=== PATIENT | female | born 1985 | race Caucasian/White ===

== ENCOUNTER 2019-07-03 10:40 | Inpatient (IN) | payer OTHER ==
[2019-07-03] MEDS ORDERED: ONDANSETRON 4 MG/2 ML VIAL IVP PRN (11:35)
[2019-07-03] MEDS ORDERED: METOCLOPRAMIDE 10 MG/2 ML VIAL IVP PRN (11:35)
[2019-07-03] MEDS ORDERED: SODIUM CHLORIDE FLUSH 0.9% 10 ML SYRINGE IVP PRN (11:35)
[2019-07-03] MEDS ORDERED: OXYTOCIN/SODIUM CHLORIDE 500 ML IV ONE (11:53)
[2019-07-03] MEDS ORDERED: LACTATED RINGERS 1,000 ML IV SCH (12:00)
[2019-07-03] MEDS ORDERED: AMPICILLIN 2 GM in SODIUM CHLORIDE 0.9% MINIBAG 100 ML IV SCH (12:00)
[2019-07-03 12:02] LABS: BASOPHILS # (AUTO) 0.1 10^3/uL (0.0-0.1); BASOPHILS % (AUTO) 0.3 %; EOSINOPHILS % (AUTO) 0.1 %; HGB - HEMOGLOBIN 13.6 g/dL (12.0-16.0); LYMPHOCYTES # (AUTO) 1.8 10^3/uL (1.5-3.5); LYMPHOCYTES % (AUTO) 12.6 %; MEAN CORPUSCULAR HEMOGLOBIN 30.5 pg (27.0-31.0); MEAN CORPUSCULAR HGB CONC 33.3 g/dL (32.0-36.0); MEAN CORPUSCULAR VOLUME 91.5 fL (81.0-99.0); MEAN PLATELET VOLUME 10.2 fL (7.9-10.8); MONOCYTES # (AUTO) 0.7 10^3/uL (0.0-1.0); MONOCYTES % (AUTO) 5.1 %; NEUTROPHILS # (AUTO) 11.8 10^3/uL (1.5-6.6); NEUTROPHILS % (AUTO) 81.3 %; PLT - PLATELET COUNT 348 10^3/uL (130-450); RED BLOOD COUNT 4.46 10^6/uL (4.20-5.40); RED CELL DISTRIBUTION WIDTH 13.1 % (12.0-15.0); WHITE BLOOD COUNT 14.5 x10^3/uL (4.8-10.8)
[2019-07-03] MEDS: SODIUM CHLORIDE FLUSH 0.9% 10 ML SYRINGE IVP SCH (12:06)
[2019-07-03] MEDS ORDERED: OXYTOCIN/SODIUM CHLORIDE 500 ML IV PRN (12:53)
[2019-07-03] MEDS ORDERED: LIDOCAINE-MPF 1% 30 ML VIAL ID PRN (12:55)
[2019-07-03] MEDS ORDERED: SIMETHICONE CHEW 80 MG TABLET PO PRN (13:13)
[2019-07-03] MEDS ORDERED: ONDANSETRON ODT 4 MG TABLET TL PRN (13:13)
[2019-07-03] MEDS ORDERED: METHYLERGONOVINE 0.2 MG/ML AMP IM PRN (13:13)
[2019-07-03] MEDS ORDERED: CARBOPROST TROMETHAMINE 250 MCG/ML AMP IM PRN (13:13)
--- NOTE | 2019-07-03 13:22 | DELIVERY NOTE ---
Delivery Note - Infant Delivery Method Infant Delivery Method: positive: Spontaneous vaginal delivery - Presentation Presentation: positive: Vertex - Nuchal Cord Nuchal Cord: positive: None - Amniotic Fluid Description Amniotic Fluid Description: positive: Light meconium - Laceration Laceration: positive: 2nd degree - Suture Suture Size: positive: 3-0 - Delivery Outcome Delivery Outcome: positive: Livebirth - [place]: positive: Placed in direct skin contact with mother, Suctioned, Bulb syringe, Stimulated, Warmed, [place] used sex: positive: Female - Cord Cord: positive: 3 vessels - Placenta Placenta: positive: Intact - Post Delivery Events Post Delivery Events: positive: No post delivery events - Delivery Comments (Free Text/Narrative) Delivery Comments (Free Text/Narrative): STAGE I: Patient is a 34 yo at 39w6d with prior vaginal delivery of twins. Initial SVE 5/80/0 cm at 11:41 am per RN exam. GBS positive, one dose of ampicillin given per protocol but 4 hour window of exposure not met. No epidural; unmedicated delivery. Spontaneous rupture of membranes. Progressed rapidly to complete after SROM at 12:41. Category I tracing. STAGE II: Dr Villarreal present at bedside after SROM as patient started to crown a lmost immediately. Dr. Askew relieved Dr. Villarreal to complete delivery. Patient pushed well for 10 minutes to deliver a viable and vigrous female infant from [place] presentation. Delivered easily with right shoulder anterior. No nuchal cord. Delivered to maternal chest. Delayed cord clamping. After cord had ceased pulsing, cord was clamped x2 and cut. Weight 3145 g and Apgars 8/9. STAGE III: Placenta delivered easily with gentle downward traction on the umbilical cord. It was examined and found to be intact. Examination of the perineum revealed a small midline 2nd laceration. It was repaired in the usual sterile fashion using 3-0 Vicryl. Good hemostasis was noted. Procedure was well toelrated and without complications. EBL 150.
[2019-07-03] MEDS ORDERED: AMPICILLIN 1 GM in SODIUM CHLORIDE 0.9% MINIBAG 100 ML IV SCH (16:00)
[2019-07-03] MEDS: IBUPROFEN 600 MG TABLET PO PRN ×2 (17:46→23:44)
[2019-07-03] MEDS: ACETAMINOPHEN 325 MG TABLET PO SCH ×2 (18:09→18:16)
[2019-07-03] MEDS: LACTATED RINGERS 1,000 ML IV SCH (18:10)
[2019-07-03] MEDS: ACETAMINOPHEN 500 MG TABLET PO PRN (19:01)
[2019-07-03] MEDS ORDERED: HYDROCORTISONE 1% CREAM 28 GM TUBE TOP SCH (20:16)
--- NOTE | 2019-07-03 23:33 | HISTORY & PHYSICAL EXAMINATION ---
Admit History - : 2 Parity: 2000 Care: positive: [facility] Smoking Status: Never smoker - Mother's Labs Mother's Blood Type: positive: A Mother's RH: positive: Positive GBS: positive: Group B Strep Positive Rubella Status: positive: Immune - Other Maternal History Other Maternal History: Patient is a 34-year-old -0-0-1 at 39w6d with a history of 38-week delivery of twins now here in labor. Patient presented with painful contractions. Initial SVE was 5/80/-1. Patient is GBS positive. Membranes were intact. Desires unmedicated delivery. Otherwise uncomplicated obstetric/medical history. LMP 08/31/18--> NIDA 07/04/19 A pos/ Rub imm GBS pos GCCT neg/neg Hep BsAg neg/ HIV NR/ RPR NR glucola 73 TDaP 04/13/19 Meds/Allgy - Allergies Allergies/Adverse Reactions: Allergies Allergy/AdvReac Type Severity Reaction Status Date / Time No Known Drug Allergies Allergy Verified 07/03/19 21:28 Review of Systems - Other Findings Other Findings: As per HPI otherwise remaining systems are negative. Physical - Abdominal Exam Vital Signs: Temp Pulse Resp BP Pulse Ox 97.9 F 84 18 105/52 L 99 07/03/19 19:57 07/03/19 19:57 07/03/19 19:57 07/03/19 17:02 07/03/19 19:57 Contraction Frequency (min/apart): Q 2min Contraction Intensity: positive: Moderate to strong - Monitoring Strip Review: positive: Category I - Presentation Presentation: positive: Vertex - Vaginal Exam Membranes: positive: Membranes intact Dilation (in cm): 5 Effacement (%): 80 Station: positive: -1 - Speculum Exam Speculum Exam Performed: positive: No Plan for Labor - Plan For Labor Plan for Labor: LABOR: Expectant management -Pitocin augmentation as indicated after GBS ppx complete FWB: vertex, GBS pos, Cat I tracing -Ampicillin per GBS protocol -No augmentation of labor until 4 hours of ampicillin exposure complete PAIN: Desires unmedicated delivery -Mold Clamper at bedside ETA: SROM at 12:41 with rapid delivery at 12:51. See delivery note. Will likely need 48 horus observation given inadequate GBS ppx
[2019-07-03] MEDS: DOCUSATE SODIUM 100 MG CAPSULE PO PRN (23:44)
[2019-07-04] MEDS: ACETAMINOPHEN 500 MG TABLET PO PRN ×3 (03:04→20:14)
[2019-07-04] MEDS: IBUPROFEN 600 MG TABLET PO PRN ×3 (06:36→18:19)
[2019-07-04] MEDS: LACTATED RINGERS 1,000 ML IV SCH ×2 (08:42→08:43)
[2019-07-04] MEDS: SODIUM CHLORIDE FLUSH 0.9% 10 ML SYRINGE IVP SCH ×2 (08:43→18:38)
--- NOTE | 2019-07-04 09:30 | PROVIDER PROGRESS NOTE ---
Subjective - Prog Note Date Prog Note Date: 07/04/19 Prog Note Time: 09:28 - Subjective Pt reports feeling: Improved Subjective: PPD#1 s/p unmedicated . Doing well. Up and ambulating. Tolerating po. Voiding. Pain well managed. Cramping with BF. Minimal lochia. Objective - Vital Signs/Intake & Output Vital Signs: Vital Signs x48h Temp Pulse Resp BP Pulse Ox 07/04/19 08:35 97.9 F 74 18 109/68 100 07/04/19 06:39 97.6 F L 76 18 110/68 100 Intake & Output: Intake & Output 07/01/19 07/02/19 07/03/19 07/04/19 23:59 23:59 23:59 23:59 Intake Total 680 Output Total 1500 Balance -820 - Objective General Appearance: positive: No acute distress Neck: positive: Nml inspection Respiratory: positive: No respiratory distress, Breath sounds nml Cardiovascular: positive: Regular rate & rhythm Abdomen: positive: Non-tender, Other (FF below umbilicus) Back: positive: Nml inspection Skin: positive: Color nml Extremities: positive: Non-tender Neurologic/Psychiatric: positive: Oriented x3 - Lab Results Fish Bones: 07/03/19 11:40 Other Labs: Lab Results x24hrs 07/03/19 Range/Units 11:40 WBC 14.5 H (4.8-10.8) x10^3/uL RBC 4.46 (4.20-5.40) 10^6/uL Hgb 13.6 (12.0-16.0) g/dL Hct 40.8 (37.0-47.0) % MCV 91.5 (81.0-99.0) fL MCH 30.5 (27.0-31.0) pg MCHC 33.3 (32.0-36.0) g/dL RDW 13.1 (12.0-15.0) % Plt Count 348 (130-450) 10^3/uL MPV 10.2 (7.9-10.8) fL Neut # (Auto) 11.8 H (1.5-6.6) 10^3/uL Lymph # (Auto) 1.8 (1.5-3.5) 10^3/uL [place] # (Auto) 0.7 (0.0-1.0) 10^3/uL Eos # (Auto) 0.0 (0.0-0.7) 10^3/uL Baso # (Auto) 0.1 (0.0-0.1) 10^3/uL Absolute Nucleated RBC 0.00 x10^3/uL Nucleated RBC % 0.0 /100WBC Assessment/Plan - Problem List (1) Vaginal delivery Impression: PPD #1: 34 yo with hx of twin gestation s/p Doing well Inpatient care for GBS observation Rh positive/ rub imm Anticipate DC to home with baby is cleared for discharge.
[2019-07-04] MEDS: DOCUSATE SODIUM 100 MG CAPSULE PO PRN (12:00)
[2019-07-04] MEDS ORDERED: ROPIVACAINE 0.2% 0 MG/0 ML BAG EP ONE (23:18)
[2019-07-05] MEDS: IBUPROFEN 600 MG TABLET PO PRN ×2 (01:06→09:09)
[2019-07-05] MEDS: DOCUSATE SODIUM 100 MG CAPSULE PO PRN (09:09)
[2019-07-05] MEDS: ACETAMINOPHEN 500 MG TABLET PO PRN (09:09)
[2019-07-05 09:25] VITALS: BP 113/63
--- NOTE | 2019-07-05 11:23 | PROVIDER PROGRESS NOTE ---
Subjective - Prog Note Date Prog Note Date: 07/05/19 Prog Note Time: 08:30 - Subjective Pt reports feeling: Improved (Doing well. Up and ambulating. Tolerating po. Piain well managed with po pain meds. BF going well.) Objective - Vital Signs/Intake & Output Vital Signs: Vital Signs x48h Temp Pulse Resp BP Pulse Ox 07/05/19 09:23 97.9 F 87 18 113/63 100 07/05/19 05:00 98.0 F 74 16 103/63 100 Intake & Output: Intake & Output 07/02/19 07/03/19 07/04/19 07/05/19 23:59 23:59 23:59 23:59 Intake Total 680 Output Total 1500 Balance -820 - Objective General Appearance: positive: No acute distress Respiratory: positive: No respiratory distress Cardiovascular: positive: Regular rate & rhythm, Other Peripheral Pulses: 2+ Dorsalis pedis (R), 2+ Dorsalis pedis (L) Abdomen: positive: Non-tender, Other (FF below umbilicus) Skin: positive: Color nml Neurologic/Psychiatric: positive: Oriented x3 - Lab Results Fish Bones: 07/03/19 11:40 Assessment/Plan - Problem List (1) Vaginal delivery Impression: Meeting goals for discharge Routine discharge instructions given. Rh pos/ Rub imm DC to home
--- NOTE | 2019-07-05 11:25 | DISCHARGE SUMMARY ---
Discharge Summary Admit Date: 07/03/19 Discharge Date: 07/05/19 Discharging Provider: Bonny Askew - DIAGNOSES Admission Diagnoses: Labor at term Discharge Diagnoses with Status of Each Condition: Same and delivery of term gestation - HOSPITAL COURSE Hospital Course: Patient is a 34 yo at 39w6d with prior vaginal delivery of twins. Initial SVE 5/80/0 cm at 11:41 am per RN exam. GBS positive, one dose of ampicillin given per protocol but 4 hour window of exposure not met. No epidural; unmedicated delivery. Spontaneous rupture of membranes. Progressed rapidly to complete after SROM at 12:41. Category I tracing. Dr Villarreal present at bedside after SROM as patient started to crown almost immediately. Dr. Askew relieved Dr. Villarreal to complete delivery. Patient pushed well for 10 minutes to deliver a viable and vigrous female infant from [place] presentation. Delivered easily with right shoulder anterior. No nuchal cord. Delivered to maternal chest. Delayed cord clamping. After cord had ceased pulsing, cord was clamped x2 and cut. Weight 3145 g and Apgars 8/9. Placenta delivered easily with gentle downward traction on the umbilical cord. It was examined and found to be intact. Examination of the perineum revealed a small midline 2nd laceration. It was repaired in the usual sterile fashion using 3-0 Vicryl. Good hemostasis was noted. Procedure was well tolerated and without complications. EBL 150. course was uncomplicated. Baby was observed for 48 hours due to incomplete GBS prophylaxis. Discharged to home PPD#2. Routine discharge instructions given. - ALLERGIES Allergies/Adverse Reactions: Allergies Allergy/AdvReac Type Severity Reaction Status Date / Time No Known Drug Allergies Allergy Verified 07/03/19 21:28 - LABS Result Diagrams: 07/03/19 11:40 - FOLLOW UP Follow Up: Follow-up in clinic in 6 weeks. - TIME SPENT Time Spent in Discharge (Minutes): 30
--- NOTE | 2019-07-05 12:34 | Labor Flowsheet ---
Labor Flowsheet Datetime Report Generated by CPN: 07/05/2019 12:34 Datetime: 07/05/2019 09:19 VITAL SIGNS NBP Sys/[place]/Mean (mmHg): 113 : 63 : 75 Pulse: 79 LaborFlag: Labor Datetime: 07/03/2019 16:55 SpO2 (%): 99 Datetime: 07/03/2019 12:53 MEDICATIONS Medication Comments: Pitocin started Datetime: 07/03/2019 12:51 UTERINE ACTIVITY Monitor Mode: External Quality: Strong Pattern: Normal: <= 5 Contractions in 10 Minutes Resting Tone (Palpate): Relaxed Contraction Comments: Pushing contractions Datetime: 07/03/2019 12:45 ASSESSMENT A Monitor Mode: Telemetry FHR Baseline Rate : 130 Variability: Moderate 6-25 bpm Decelerations: Early Category: Category I PATIENT CARE Oxygen Method: Room Air STAGE 2 Pushing: Urge to Push Pushing Position: Pushing with Contractions; Pushing Right Side; Pushing Lithotomy Pushing Progress: Descent with Pushing Datetime: 07/03/2019 12:41 VAGINAL EXAM Dilatation (cm): 10.0 Effacement (%): 100 Station: 2 Exam by: Dr. Villarreal Datetime: 07/03/2019 12:39 Membrane Status: Ruptured Membranes Rupture Method: Spontaneous Amniotic Fluid Color: Light Meconium Amniotic Fluid Amount: Large Datetime: 07/03/2019 12:30 Frequency (min): 1.5-3 Duration (sec): 50-100 Accelerations: None Comments: [id number]: questionable tracing while patient was in bathroom Datetime: 07/03/2019 12:20 COMMUNICATION Communication: Provider at Bedside Communication Comments: Dr. Askew at bedside; plan of care reviewed
== END 2019-07-05 12:15 | disposition home or self-care (01) | DRG 807 ==
LOC: WFO 10:40 → FBP 10:46 → WFO 11:34 → FBP 11:35
PROVIDERS: ADMIT Obstetrics & Gynecology; ATTEND Obstetrics & Gynecology
PROC: 10E0XZZ Delivery of Products of Conception, External Approach (ICD-10-PCS; principal; 2019-07-03)
PROC: 0KQM0ZZ Repair Perineum Muscle, Open Approach (ICD-10-PCS; 2019-07-03)
DX: O99.824 Streptococcus B carrier state complicating childbirth (principal); Z37.0 Single live birth; O77.0 Labor and delivery complicated by meconium in amniotic fluid; O70.1 Second degree perineal laceration during delivery; Z3A.39 39 weeks gestation of pregnancy
CPT/HCPCS: 85025; 99214; A9270; J7120